=== PATIENT | female | born 1955 | race Caucasian/White ===

== ENCOUNTER 2018-07-17 10:15 | Inpatient (IN) | payer MEDICARE, OTHER ==
[~2018-07-17] VITALS: Ht 160 cm; Wt 78.0 kg
[~2018-07-17 10:15] MED LIST: ATOR20TA38 PO
[2018-07-17] MEDS ORDERED: NITROGLYCERIN 2% 1 GM OINT PKT TD STA (11:23)
[2018-07-17] MEDS ORDERED: ASPIRIN 325 MG TAB PO STA (11:23)
--- NOTE | 2018-07-17 11:26 | ERD ---
ER Documentation Chief Complaint Chief Complaint CP,SOB ONSET YESTERDAY HPI This is a 62-year-old female sent by her primary care physician for admission to the hospital for exertional angina with EKG changes. The patient says that last Monday she was getting exertional angina that was resolving with rest she is also short of breath with exertion is also resolving with rest. The symptoms are getting worse over the past week. She saw her primary care in the office today was sent here for admission and evaluation by cardiology. Currently she has no chest pain at rest. She has a history of prediabetes, hypertension, high cholesterol ROS All systems reviewed and are negative except as per history of present illness. Medications Home Meds Reported Medications Simvastatin* (Zocor*) 20 Mg Tablet, 20 MG PO QHS, #30 TAB 07/17/18 Aspirin* (Aspirin* EC) 81 Mg Tablet.dr, 81 MG PO DAILY, TAB 07/17/18 Metoprolol Succinate* (Toprol XL*) 50 Mg Tab.er.24h, 50 MG PO DAILY, #30 TAB 07/17/18 Discontinued Reported Medications Atorvastatin Calcium* (Atorvastatin Calcium*) 20 Mg Tablet, 20 MG PO 05/01/13 Allergies Allergies: Coded Allergies: No Known Allergy (Unverified , 07/17/18) PMhx/Soc History of Surgery: Yes (RIGHT BREAST SURGERY CANCER ) Anesthesia Reaction: No Hx 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 Disorder: No Hx Respiratory Disorders: Yes (ASTHMA ) Hx Cardiac Disorders: Yes (MURMER SINCE CHILDHOOD PALPITATIONS FREQUENTLY ; HIGH CHOLES;MICRO STENOSIS) Hx Psychiatric Problems: No Hx Miscellaneous Medical Probl: Yes (LYMPHODEMA ) Hx Alcohol Use: No Hx Substance Use: No Hx Tobacco Use: No Smoking Status: Never smoker FmHx Family History: No coronary disease Physical Exam Vitals Vital Signs Date Temp Pulse Resp B/P (MAP) Pulse Ox O2 O2 Flow FiO2 Time Delivery Rate 07/17/18 77 20 128/73 95 Room Air 11:15 (91) 07/17/18 98.1 74 18 134/63 99 10:32 (86) Physical Exam Const: [Well-developed, well-nourished] Head: [Atraumatic, normocephalic] Eyes: [Normal Conjunctiva, PERRLA, EOMI, normal sclera, no nystagmus] ENT: [Normal External Ears, Nose and Mouth, moist mucus membranes.] Neck: [Full range of motion. No meningismus, no lymphadenopathy.] Resp: [Clear to auscultation bilaterally, no wheezing, rhonchi, rales] Cardio: [Regular rate and rhythm, no murmurs, S1 S2 present] Abd: [Soft, non tender x 4, non distended. Normal bowel sounds, no guarding or rebound, no pulsitile abdominal masses or bruits] Skin: [No petechiae or rashes, no ecchymosis , no maculopapular rash] Back: [No midline or flank tenderness] Ext: [No cyanosis, or edema, FROM x 4, normal inspection, neurovascularly intact x 4] Neur: [Awake and alert, STR 5/5 x 4, sensation intact x 4, no focal findings, cerebellum intact] Psych: [Normal Mood and Affect] Results 24 hrs Current Medications Medications Dose Sig/Jose Start Time Status Last (Trade) Ordered Route PRN Stop Time Admin Dose Reason Admin Aspirin 325 mg ONCE STAT 07/17/18 DC 07/17/18 (Aspirin) PO 11:23 07/17/18 11:52 11:25 1 inch ONCE STAT 07/17/18 DC 07/17/18 Nitroglycerin TD 11:23 07/17/18 11:52 11:25 (Nitroglyceri n 2% Oint) Procedures/MDM EKG: Rate/Rhythm: Normal sinus rhythm with nonspecific T wave changes QRS, ST, QT: NORMAL MO, QRS, QT] Impression: Abnormal EKG Spoke with the primary care physician who will have admit under his care and he said he also has already consulted a senior relationship manager for evaluation Cardiac Admit MDM: Patient's symptoms are concerning for cardiac cause will require inpatient workup and continuous monitoring. Further w/u for ischemia, arrhythmia, PE or dissection will be deferred to the inpatient team. Departure Diagnosis: Primary Impression: Chest pain Chest pain type: unspecified Qualified Codes: R07.9 - Chest pain, unspecified Condition: Stable ANOOP IBRAHIM DO Jul 17, 2018 11:26
[2018-07-17] MEDS ORDERED: METO-319 PO (11:51)
[2018-07-17] MEDS ORDERED: ASPI-817 PO (11:52)
[2018-07-17] MEDS ORDERED: SIMV20TA PO (11:53)
[2018-07-17] MEDS ORDERED: ACETAMINOPHEN 325 MG TAB PO PRN ×2 (12:30→19:30)
[2018-07-17] MEDS ORDERED: ONDANSETRON 4 MG INJ IV PRN ×2 (12:30→20:00)
[2018-07-17] MEDS ORDERED: AZITHROMYCIN 500MG/NS (PMX) 250 ML IV STA (14:11)
[2018-07-17] MEDS ORDERED: IOHEXOL 100 ML ONE (14:27)
[2018-07-17] MEDS ORDERED: SOD CHLORIDE 0.9% 100 ML ONE (14:27)
[2018-07-17] MEDS: CEFTRIAXONE 1 GM/50 ML (PMX) 50 ML IVPB STA ×2 (14:47→14:53)
--- NOTE | 2018-07-17 17:14 | RADRPT ---
Echocardiogram Report Patient Name: RASTA PATRICKPatient ID: [id number] : 1955 (62y 9m)Study Date: 07/17/2018 3:50:55 PM Gender: FAccession #: [id number] Tech: Bert Enrique [facility] Location: [facility] Ref.Physician: COURTNEY NASSAR Height(Cm): BSA: Weight(Kg): BMI: Quality: Technically Difficult Study Account #: Procedures: Echocardiographic Report: Transthoracic echocardiogram with complete 2D, M-Mode, and doppler examination. Indications: Chest Pain. Measurements: 2D/M Mode Doppler Measurement Value Normal Range Measurement Value Normal Range LVIDd 2D 4.8 [ 3.8 - 5.2 ] cm AV Peak Gamal 1.2 [ 100.0 - 170.0 ] cm/s ec LVIDs 2D 3.5 [ 2.2 - 3.5 ] cm AV Peak PG 6.0 [ 2.0 - 9.0 ] mmHg LVPWd 2D 1.0 [ 0.6 - 0.9 ] cm LVOT Peak Gamal 0.7 [ 70.0 - 110.0 ] cm/se c IVSd 2D 1.0 [ 0.6 - 0.9 ] cm LVOT Peak PG 2.0 [ 2.0 - 6.0 ] mmHg AoR Diam 2D 2.4 [ 2.3 - 3.1 ] cm MV E Peak Gamal 1.2 [ 60.0 - 130.0 ] cm/se c EDV 2D 109.0 [ 46.0 - 106.0 ] ml MV A Peak Gamal 0.9 [ 100.0 - 120.0 ] cm/s ec ESV 2D 50.5 [ 14.0 - 42.0 ] ml MV E/A 1.3 [ 0.8 - 1.5 ] ratio EF 2D 53.7 [ 54.0 - 74.0 ] percent MV PHT 81.0 [ 20.0 - 100.0 ] msec LA Dimen 2D 4.1 [ 2.7 - 3.8 ] cm MV Peak Gamal 1.7 [ 60.0 - 130.0 ] cm/se c MV Peak PG 11.0 [ 1.0 - 10.0 ] mmHg MV Mean Gamal 1.2 cm/sec MV Mean PG 6.0 mmHg MV Decel Time 229 [ 104 - 258 ] msec MV Decel [place] 6 Lat E` Gamal 0.1 [ 10.0 - 15.0 ] cm/sec Lateral E/E` 18.8 [ 1.0 - 2.0 ] ratio MV E/A 1.3 [ 0.8 - 1.5 ] ratio MV PHT Peak Gamal 1.7 cm/sec MV VTI 47.1 cm MVA PHT 2.7 [ 2.0 - 4.0 ] cm2 TR Peak Gamal 3.2 [ 100.0 - 280.0 ] cm/s ec TR Peak PG 40.0 mmHg RVSP 48.0 [ 10.0 - 36.0 ] mmHg Findings: Left Ventricle: Normal left ventricular systolic function. Normal left ventricular cavity size. Normal left ventricular wall thickness. Ejection fraction is visually estimated at 55 %. Tissue Doppler/Mitral Doppler indices are indeterminate in this study due to the presence of mitral stenosis. Right Ventricle: Normal right ventricular size. Normal right ventricular systolic function. Left Atrium: There is mild enlargement of left atrium. Right Atrium: There is mild enlargement of right atrium. Mitral Valve: Mitral valve leaflets appear mildly thickened. Mild mitral annular calcification. Mild to moderate mitral stenosis. Mitral valve Max Velocity 1.69 m/sec. MaxPG 11.00 mmHg. MeanPG 6.00 mmHg. Mitral Valve Area by PHT 2.72 cm2. Thickened mitral valve leaflets with limited excursion typical appearance consistent with Rheumatic Mitral valve. Aortic Valve: No hemodynamically significant aortic stenosis by doppler. Aortic cusps appear mildly calcified. Tricuspid Valve: Normal appearance of the tricuspid valve. Right ventricular systolic pressure is consistent with moderate pulmonary hypertension. Estimated peak PA systolic pressure 48 mmHg. There is moderate tricuspid regurgitation. Pulmonic Valve: Normal pulmonic valve appearance. There is mild pulmonic regurgitation. Pericardium: Normal pericardium with no significant pericardial effusion. Aorta: Normal aortic root. IVC: Dilated IVC with respiratory collapse consistent with elevated right atrial pressure. Conclusions: Technically Difficult Study. Normal left ventricular systolic function. Normal left ventricular cavity size. Normal left ventricular wall thickness. Ejection fraction is visually estimated at 55 %. Tissue Doppler/Mitral Doppler indices are indeterminate in this study due to the presence of mitral stenosis. Normal right ventricular size. Normal right ventricular systolic function. There is mild enlargement of left atrium. Mitral valve leaflets appear mildly thickened. Mild mitral annular calcification. Mild to moderate mitral stenosis. Mitral valve Max Velocity 1.69 m/sec. MaxPG 11.00 mmHg. MeanPG 6.00 mmHg. Mitral Valve Area by PHT 2.72 cm2. Thickened mitral valve leaflets with limited excursion typical appearance consistent with Rheumatic Mitral valve. Normal appearance of the tricuspid valve. Right ventricular systolic pressure is consistent with moderate pulmonary hypertension. Estimated peak PA systolic pressure 48 mmHg. There is moderate tricuspid regurgitation. Normal pericardium with no significant pericardial effusion. Dilated IVC with respiratory collapse consistent with elevated right atrial pressure. No Vegetation, masses, or thrombi seen. Electronically Signed By: Lamin Herman 2018-07-17 17:13:21 PDT
--- NOTE | 2018-07-17 17:28 | CONS ---
Assessment/Plan Assessment/Plan Hospital Course (Demo Recall) 1. Chest pain shortness of breath 2. Pleural effusions right greater than left. Possible pneumonia on CT scan/chest x-ray 3. Stable mild to moderate mitral stenosis 4. Moderate pulmonary hypertension due to #3 5. History of SVT currently in sinus rhythm Recommendations: cont serial troponin EKG to rule for ACS though less likely given chronicity and duration of symptoms without evidence of any troponin elevation at the current time. Also with evidence of possible pneumonia on CT and chest x-ray however patient with normal white count no fevers question atypical. Can consider right thoracentesis for diagnostic/therapeutic purpose. Patient is already obtained an echo which showed stability stable cardiac disease no acute wall motion abnormality or LV dysfunction. Would hold off on further cardiac testing unless changes in cardiac enzyme until pulmonary process resolves. Consultation Date/Type/Reason Admit Date/Time 07/17/18 Date of Consultation: Jul 17, 2018 Type of Consult Cardiology Reason for Consultation SOB Requesting Provider: COURTNEY NASSAR MD Date/Time of Note DATE: 07/17/18 TIME: 17:17 Hx of Present Illness Patient is a 62-year-old woman with a past medical history of mild to moderate mitral stenosis, SVT who sees Dr. ba is outpatient. Patient states she was in good state of health until last Monday when she developed slow progression of dyspnea on exertion with chest pressure. Patient states initially intermittent though lasting longer with each day. Yesterday she noticed even shortness of breath and chest pressure with basic activity which would last for hours even with rest. States even with lying down she would feel better but any movement would cause shortness of breath. No PND orthopnea. No edema. Denies any fevers chills cough. Denies any other recent illness. States previous able to walk no chest pain shortness of breath. Patient seen by PCP in office today found to have abnormal EKG with normal sinus rhythm and T wave flattening of ST depression in inferior leads which was new compared to previous EKG and sent to [facility] ER for further evaluation. Fi rst troponin negative. Patient denies any current chest pain shortness of breath. At rest Constitutional: no complaints Eyes: no complaints ENT: no complaints Respiratory: shortness of breath; No cough Cardiovascular: chest pain Gastrointestinal: no complaints Genitourinary: no complaints Musculoskeletal: no complaints Skin: no complaints Neurologic: no complaints Endocrine: no complaints Immunologic: no complaints Past Medical History Past medical history: Hyperlipidemia, SVT, mitral stenosis, breast cancer status post bilateral mastectomy, reconstruction as well as chemotherapy., type 2 diabetes Past surgical history: Bilateral mastectomy, VINAY/BSO. Home Meds Reported Medications Simvastatin* (Zocor*) 20 Mg Tablet, 20 MG PO QHS, #30 TAB 07/17/18 Aspirin* (Aspirin* EC) 81 Mg Tablet.dr, 81 MG PO DAILY, TAB 07/17/18 Metoprolol Succinate* (Toprol XL*) 50 Mg Tab.er.24h, 50 MG PO DAILY, #30 TAB 07/17/18 Discontinued Reported Medications Atorvastatin Calcium* (Atorvastatin Calcium*) 20 Mg Tablet, 20 MG PO 05/01/13 Medications Current Medications Ondansetron HCl (Zofran Inj) 4 mg ER BRIDGE PRN IV NAUSEA/VOMITING; Start 07/17/18 at 12:30; Stop 07/18/18 at 12:29 Acetaminophen (Tylenol Tab) 650 mg ER BRIDGE PRN PO .MILD PAIN 1-3 OR TEMP; Start 07/17/18 at 12:30; Stop 07/18/18 at 12:29 Allergies: Coded Allergies: No Known Allergy (Unverified , 07/17/18) Family History Significant Family History: other (No significant family history of heart disease) Social History Smoking Status: Never smoker Other Social History Denies any alcohol drug or smoking. Exam/Review of Systems Exam Vitals Vital Signs Date Temp Pulse Resp B/P (MAP) Pulse Ox O2 O2 Flow FiO2 Time Delivery Rate 07/17/18 74 20 103/72 98 Room Air 15:00 (82) 07/17/18 98.1 10:32 Constitutional: alert, oriented Psych: no complaints, nl mood/affect Head: normocephalic Eyes: nl conjunctiva, EOMI ENMT: nl external ears & nose, nl lips & teeth, nl nasal mucosa & septum Neck: supple, non-tender; No jvd Respiratory: diminished breath sounds (R base), other Cardiovascular: regular rate and rhythm, nl pulses, diastolic murmur; No edema, No irregular rhythm, No jugular venous distention (JVD), No S3, No S4 Gastrointestinal: soft, non-tender Musculoskeletal: nl extremities to inspection, nl gait and stance Extremities: normal pulses 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: 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 II-XII intact, nl mental status, nl speech, nl strength Results Result Diagram: 07/17/18 1243 07/17/18 1243 Results 24hrs Laboratory Tests Test 07/17/18 12:43 White Blood Count 8.7 Red Blood Count 4.62 Hemoglobin 14.1 Hematocrit 42.1 Mean Corpuscular Volume 91.1 Mean Corpuscular Hemoglobin 30.5 Mean Corpuscular Hemoglobin Concent 33.5 Red Cell Distribution Width 12.5 Platelet Count 242 Mean Platelet Volume 10.0 Immature Granulocytes % 0.700 H Neutrophils % 66.1 Lymphocytes % 24.2 Monocytes % 6.8 Eosinophils % 1.6 Basophils % 0.6 Nucleated Red Blood Cells % 0.0 Immature Granulocytes # 0.060 H Neutrophils # 5.7 Lymphocytes # 2.1 Monocytes # 0.6 Eosinophils # 0.1 Basophils # 0.1 Nucleated Red Blood Cells # 0.0 Sodium Level 140 Potassium Level 3.9 Chloride Level 99 Carbon Dioxide Level 28 Anion Gap 13 Blood Urea Nitrogen 19 Creatinine 0.68 Est Glomerular Filtrat Rate mL/min > 60 Glucose Level 103 Calcium Level 9.7 Total Bilirubin 1.0 Direct Bilirubin 0.00 Indirect Bilirubin 1.0 Aspartate Amino Transf (AST/SGOT) 63 H Alanine Aminotransferase (ALT/SGPT) 101 H Alkaline Phosphatase 102 Troponin I < 0.012 Total Protein 7.5 Albumin 4.3 Globulin 3.20 Albumin/Globulin Ratio 1.34 Imaging Imaging Chest x-ray and CT angiogram results reviewed in EMR Medications Medication Current Medications Ondansetron HCl (Zofran Inj) 4 mg ER BRIDGE PRN IV NAUSEA/VOMITING; Start 07/17/18 at 12:30; Stop 07/18/18 at 12:29 Acetaminophen (Tylenol Tab) 650 mg ER BRIDGE PRN PO .MILD PAIN 1-3 OR TEMP; Start 07/17/18 at 12:30; Stop 07/18/18 at 12:29 OTIS BHATIA Jul 17, 2018 17:27
--- NOTE | 2018-07-17 19:16 | PREOPHP ---
DATE OF ADMISSION: 07/17/2018 REASON FOR ADMISSION: Shortness of breath and chest pressure on exertion. HISTORY OF PRESENT ILLNESS: This 62-year-old female came into my office today because of 1 week of progressive increase in shortness of breath and chest pressure on exertion. The patient denies cough, fever, chills. Her EKG that was done in my office today did show flattening of T-waves in several leads which was different than her previous EKG done a year ago. She has a history of bilateral breast cancer which has been in remission. She does have a history of mitral stenosis and a history of previous supraventricular tachycardia for which she is on metoprolol. PAST MEDICAL HISTORY: Remarkable for age-related osteoporosis, asthma, supraventricular tachycardia, gastroesophageal reflux disease, hyperlipidemia, malignant neoplasm of both breasts, mitral stenosis, BRCA gene positive, rheumatic mitral stenosis, type 2 diabetes mellitus without complication, vitamin D deficiency. PAST SURGICAL HISTORY: Left breast cancer status post lumpectomy, history of partial mastectomy of the left breast after a lumpectomy, history of right mastectomy, status post chemotherapy, status post radiation to the breasts, status post hysterectomy with BSO although still has cervix. SOCIAL HISTORY: She is . Never smoked. Does not drink alcohol. REVIEW OF SYSTEMS: GASTROINTESTINAL: Negative. GENITOURINARY: Negative. MUSCULOSKELETAL: Negative. NEUROLOGIC: Negative. PHYSICAL EXAMINATION: GENERAL: At this time reveals a well-developed female in no apparent distress. VITAL SIGNS: Blood pressure 120/90, pulse is 79, temperature 97.8, O2 saturation 95% on room air. HEENT: Head is normocephalic. Eyes: Extraocular muscles are intact. Nose and mouth are normal. NECK: Supple. No neck vein distention. LUNGS: Showed some mid lung rales in the left lung. The right lung was clear. HEART: Regular rhythm. No murmurs, gallops or rubs. ABDOMEN: Soft, nontender, no masses or megaly. EXTREMITIES: No peripheral edema. No calf tenderness. NEUROLOGIC: Grossly intact. IMPRESSION: 1. Exertional chest pressure for 1 week with EKG changes. Must rule out cardiac ischemia. We will order troponins, EKG, echocardiogram, cardiology consultation. She does not have a cough or fever and her white count is normal. Could be pneumonia, the chest x-ray and CAT scan shows some right lung possible pneumonia. She also has a moderate sized right pleural effusion. This may need a thoracentesis. 2. History of bilateral breast cancer and BRCA gene positive. She does have a right pleural effusion on CAT scan, which is moderate in size and may require a thoracentesis. 3. History of rheumatic mitral valve stenosis. 4. History of asthma. 5. Sleep apnea. 6. Elevated blood sugars in the past. PLAN: 1. Admit to telemetry. 2. Cardiology consultation was called with Dr. Herman, echocardiogram, serial troponins, EKG in a.m., 3. Pulmonary consultation to be called. 4. Start azithromycin and ceftriaxone in view of possible pneumonia. Dictated By: COURTNEY NASSAR MD, ND/RYAN Conf#: [id number] DID#: [id number] CC: ANOOP IBRAHIM DO;*EndCC* MTDD
[2018-07-17] MEDS ORDERED: NACL 0.9% 3 ML SYG IV SCH (19:30)
[2018-07-17] MEDS ORDERED: MAGNESIUM HYDROXIDE 30ML CUP PO PRN (19:30)
[2018-07-17] MEDS ORDERED: ZOLPIDEM 5 MG TAB PO PRN (19:30)
[2018-07-18] VITALS (19 sets, daily range): BP systolic 118–175; BP diastolic 60–94; PULSE 63–147; RESP 16–20; Ht 160 cm; Wt 78.0 kg
[2018-07-18] MEDS ORDERED: METOPROLOL 5 MG INJ IV ONE (06:00)
[2018-07-18] MEDS ORDERED: METOPROLOL (XL) 50 MG TAB PO SCH ×2 (06:03→09:00)
[2018-07-18] MEDS ORDERED: FUROSEMIDE 20 MG INJ IV ONE (09:00)
--- NOTE | 2018-07-18 09:02 | PN ---
Date/Time of Note Date/Time of Note DATE: 07/18/18 TIME: 08:53 Assessment/Plan VTE [place]axis [place] [facility] [place]: 3 [place]CD [place] [facility] [place] Yes Pharmacological prophylaxis: NA/contraindicated Pharm contraindication: surgical contra Lines/Catheters IV Catheter Type (from [email or web address] Mid Line Urinary Cath still in place: No Assessment/Plan Hospital Course 1 . Atrial fib flutter with RVR , Jessie complains of feeling tired today. She went into a rapid heart rate with atrial fib/flutter this morning. She missed her dose of metoprolol last night. She got a dose of metoprolol this morning. She denies chest pain or shortness of breath. 2. She does have bilateral pleural effusions more on the right than the left. I have ordered a right thoracentesis for her today if possible. Would only do thoracentesis if he a more controlled heart rate. 3. History of bilateral breast cancer 4. Recent onset of exertional chest pressure and shortness of breath. 5. History of asthma 6. Pneumonia. She is on antibiotics for possible pneumonia. Result Diagram: 07/18/18 0503 07/18/18 0507 Results 24hrs Laboratory Tests Test 07/17/18 12:43 07/17/18 20:38 07/17/18 21:15 07/18/18 05:03 White Blood Count 8.7 7.1 Red Blood Count 4.62 4.33 Hemoglobin 14.1 13.0 Hematocrit 42.1 39.4 Mean Corpuscular Volume 91.1 91.0 Mean Corpuscular 30.5 30.0 Hemoglobin Mean Corpuscular 33.5 33.0 Hemoglobin Concent Red Cell Distribution 12.5 12.8 Width Platelet Count 242 213 Mean Platelet Volume 10.0 9.9 Immature Granulocytes % 0.700 H 0.300 Neutrophils % 66.1 64.2 Lymphocytes % 24.2 23.1 Monocytes % 6.8 7.6 Eosinophils % 1.6 4.4 Basophils % 0.6 0.4 Nucleated Red Blood 0.0 0.0 Cells % Immature Granulocytes # 0.060 H 0.020 Neutrophils # 5.7 4.6 Lymphocytes # 2.1 1.6 Monocytes # 0.6 0.5 Eosinophils # 0.1 0.3 Basophils # 0.1 0.0 Nucleated Red Blood 0.0 0.0 Cells # Sodium Level 140 Potassium Level 3.9 Chloride Level 99 Carbon Dioxide Level 28 Anion Gap 13 Blood Urea Nitrogen 19 Creatinine 0.68 Est Glomerular Filtrat > 60 Rate mL/min Glucose Level 103 Calcium Level 9.7 Total Bilirubin 1.0 Direct Bilirubin 0.00 Indirect Bilirubin 1.0 Aspartate Amino 63 H Transf (AST/SGOT) Alanine 101 H Aminotransferase (ALT/SG PT) Alkaline Phosphatase 102 Troponin I < 0.012 < 0.012 Total Protein 7.5 Albumin 4.3 Globulin 3.20 Albumin/Globulin Ratio 1.34 Urine Color YELLOW Urine Clarity CLEAR Urine pH 6.0 Urine Specific [place] 1.042 H Urine Ketones NEGATIVE Urine Nitrite NEGATIVE Urine Bilirubin NEGATIVE Urine Urobilinogen NEGATIVE Urine Leukocyte Esterase NEGATIVE Urine Hemoglobin NEGATIVE Urine Glucose NEGATIVE Urine Total Protein NEGATIVE Test 07/18/18 05:07 Sodium Level 143 Potassium Level 4.0 Chloride Level 104 Carbon Dioxide Level 30 Anion Gap 9 Blood Urea Nitrogen 16 Creatinine 0.59 Est Glomerular Filtrat > 60 Rate mL/min Glucose Level 107 Hemoglobin A1c 6.1 H Calcium Level 9.1 Total Bilirubin 0.6 Direct Bilirubin 0.00 Indirect Bilirubin 0.6 Aspartate Amino 41 Transf (AST/SGOT) Alanine 80 H Aminotransferase (ALT/SG PT) Alkaline Phosphatase 73 Troponin I < 0.012 Total Protein 6.1 # Albumin 3.5 Globulin 2.60 Albumin/Globulin Ratio 1.34 Thyroid Stimulating 2.440 Hormone (TSH) Subjective 24 Hr Interval Summary Free Text/Dictation She is feeling tired. Earlier this morning she went into a rapid atrial fib flutter rate. Her heart rate is around 140-150. She denies chest pain or shortness of breath. Respiratory: no complaints Cardiovascular: no complaints Gastrointestinal: no complaints Genitourinary: no complaints Neurologic: no complaints Exam/Review of Systems Exam Vitals Vital Signs Date Temp Pulse Resp B/P (MAP) Pulse Ox O2 O2 Flow FiO2 Time Delivery Rate 07/18/18 147 08:00 07/18/18 97.8 16 118/67 96 07:24 (84) 07/18/18 Room Air 00:03 Intake and Output 07/17/18 07/17/18 07/18/18 1515:00 23:00 07:00 IntakeIntake Total 500 ml BalanceBalance 500 ml Constitutional: alert, oriented, well developed Respiratory: crackles/rales, diminished breath sounds Cardiovascular: irregular rhythm Musculoskeletal: nl extremities to inspection Results Results 24hrs Laboratory Tests Test 07/17/18 12:43 07/17/18 20:38 07/17/18 21:15 07/18/18 05:03 White Blood Count 8.7 7.1 Red Blood Count 4.62 4.33 Hemoglobin 14.1 13.0 Hematocrit 42.1 39.4 Mean Corpuscular Volume 91.1 91.0 Mean Corpuscular 30.5 30.0 Hemoglobin Mean Corpuscular 33.5 33.0 Hemoglobin Concent Red Cell Distribution 12.5 12.8 Width Platelet Count 242 213 Mean Platelet Volume 10.0 9.9 Immature Granulocytes % 0.700 H 0.300 Neutrophils % 66.1 64.2 Lymphocytes % 24.2 23.1 Monocytes % 6.8 7.6 Eosinophils % 1.6 4.4 Basophils % 0.6 0.4 Nucleated Red Blood 0.0 0.0 Cells % Immature Granulocytes # 0.060 H 0.020 Neutrophils # 5.7 4.6 Lymphocytes # 2.1 1.6 Monocytes # 0.6 0.5 Eosinophils # 0.1 0.3 Basophils # 0.1 0.0 Nucleated Red Blood 0.0 0.0 Cells # Sodium Level 140 Potassium Level 3.9 Chloride Level 99 Carbon Dioxide Level 28 Anion Gap 13 Blood Urea Nitrogen 19 Creatinine 0.68 Est Glomerular Filtrat > 60 Rate mL/min Glucose Level 103 Calcium Level 9.7 Total Bilirubin 1.0 Direct Bilirubin 0.00 Indirect Bilirubin 1.0 Aspartate Amino 63 H Transf (AST/SGOT) Alanine 101 H Aminotransferase (ALT/SG PT) Alkaline Phosphatase 102 Troponin I < 0.012 < 0.012 Total Protein 7.5 Albumin 4.3 Globulin 3.20 Albumin/Globulin Ratio 1.34 Urine Color YELLOW Urine Clarity CLEAR Urine pH 6.0 Urine Specific [place] 1.042 H Urine Ketones NEGATIVE Urine Nitrite NEGATIVE Urine Bilirubin NEGATIVE Urine Urobilinogen NEGATIVE Urine Leukocyte Esterase NEGATIVE Urine Hemoglobin NEGATIVE Urine Glucose NEGATIVE Urine Total Protein NEGATIVE Test 07/18/18 05:07 Sodium Level 143 Potassium Level 4.0 Chloride Level 104 Carbon Dioxide Level 30 Anion Gap 9 Blood Urea Nitrogen 16 Creatinine 0.59 Est Glomerular Filtrat > 60 Rate mL/min Glucose Level 107 Hemoglobin A1c 6.1 H Calcium Level 9.1 Total Bilirubin 0.6 Direct Bilirubin 0.00 Indirect Bilirubin 0.6 Aspartate Amino 41 Transf (AST/SGOT) Alanine 80 H Aminotransferase (ALT/SG PT) Alkaline Phosphatase 73 Troponin I < 0.012 Total Protein 6.1 # Albumin 3.5 Globulin 2.60 Albumin/Globulin Ratio 1.34 Thyroid Stimulating 2.440 Hormone (TSH) Medications Medication Current Medications IV Flush (NS 3 ml) 3 ml PER PROTOCOL IV ; Start 07/17/18 at 19:30 Acetaminophen (Tylenol Tab) 650 mg Q6H PRN PO .PAIN 1-3 OR TEMP Last administered on 07/18/18at 00:29; Admin Dose 650 MG; Start 07/17/18 at 19:30 Zolpidem Tartrate (Ambien) 5 mg QHS PRN PO .INSOMNIA; Start 07/17/18 at 19:30 Magnesium Hydroxide (Milk Of Mag) 30 ml DAILY PRN PO .CONSTIPATION; Start 07/17/18 at 19:30 Aspirin (Halfprin) 81 mg DAILY PO ; Start 07/18/18 at 09:00 Azithromycin (Zithromax) 250 mg ONCE ONCE PO ; Start 07/18/18 at 20:00; Stop 07/18/18 at 20:01 Ceftriaxone Sodium 50 ml @ 100 mls/hr ONCE ONCE IVPB ; Start 07/18/18 at 20:00; Stop 07/18/18 at 20:29 Ondansetron HCl (Zofran Inj) 4 mg ER BRIDGE PRN IV NAUSEA/VOMITING; Start 07/17/18 at 20:00 Metoprolol Succinate (Toprol Xl) 50 mg DAILY PO Last administered on 07/18/18at 06:14; Admin Dose 50 MG; Start 07/18/18 at 06:03 Furosemide (Lasix) 20 mg ONCE ONCE IV ; Start 07/18/18 at 09:00; Stop 07/18/18 at 09:01; Status UNCOURTNEY ESCOBAR MD Jul 18, 2018 09:02
--- NOTE | 2018-07-18 09:59 | CONS ---
Assessment/Plan Assessment/Plan Hospital Course (Demo Recall) 1. Chest pain shortness of breath- ? related to pna vs.recurrent aflutter 2. Pleural effusions right greater than left. Possible pneumonia on CT scan/chest x-ray 3. Stable mild to moderate mitral stenosis 4. Moderate pulmonary hypertension due to #3 5. Atrial flutter 2:1 block- will need improved rate control and consider anticoag Recommendations: - inc metoprolol xl to 50mg po bid - add cardizem gtt - give mag 2g iv x 1 - consider anticoag if pt does not convert - once rate improved can obtain thoracentesis if adequate fluid Consultation Date/Type/Reason Admit Date/Time Jul 17, 2018 at 12:18 Initial Consult Date 07/17/18 Type of Consult Cardiology Requesting Provider: COURTNEY NASSAR MD Date/Time of Note DATE: 07/18/18 TIME: 09:55 24 HR Interval Summary Free Text/Dictation pt stable overnight, this am converted to aflutter with hrs 140-160s. states feels fatigue. no cp/sob. up to chair. mild dizziness, no falls. HD stable tele reviewed nsr -> aflutter 2:1 block Detailed Summary Eyes: no complaints ENT: no complaints Respiratory: shortness of breath Cardiovascular: no complaints Gastrointestinal: no complaints Genitourinary: no complaints Exam/Review of Systems Exam Vitals Vital Signs Date Temp Pulse Resp B/P (MAP) Pulse Ox O2 O2 Flow FiO2 Time Delivery Rate 07/18/18 147 08:00 07/18/18 97.8 16 118/67 96 07:24 (84) 07/18/18 Room Air 00:03 Intake and Output 07/17/18 07/17/18 07/18/18 1515:00 23:00 07:00 IntakeIntake Total 500 ml BalanceBalance 500 ml Constitutional: alert, oriented Psych: no complaints, nl mood/affect Head: normocephalic Eyes: nl conjunctiva, EOMI ENMT: nl external ears & nose, nl lips & teeth Neck: supple, non-tender; No jvd Respiratory: other (decreased bs R base ) Cardiovascular: nl pulses, diastolic murmur, other (tachy regular); No edema, No S3, No S4 Gastrointestinal: non-tender Musculoskeletal: nl extremities to inspection, nl gait and stance Extremities: normal pulses 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: 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, nl mental status, nl speech, nl strength Results Result Diagram: 07/18/18 0503 07/18/18 0507 Results 24hrs Laboratory Tests Test 07/17/18 12:43 07/17/18 20:38 07/17/18 21:15 07/18/18 05:03 White Blood Count 8.7 7.1 Red Blood Count 4.62 4.33 Hemoglobin 14.1 13.0 Hematocrit 42.1 39.4 Mean Corpuscular Volume 91.1 91.0 Mean Corpuscular 30.5 30.0 Hemoglobin Mean Corpuscular 33.5 33.0 Hemoglobin Concent Red Cell Distribution 12.5 12.8 Width Platelet Count 242 213 Mean Platelet Volume 10.0 9.9 Immature Granulocytes % 0.700 H 0.300 Neutrophils % 66.1 64.2 Lymphocytes % 24.2 23.1 Monocytes % 6.8 7.6 Eosinophils % 1.6 4.4 Basophils % 0.6 0.4 Nucleated Red Blood 0.0 0.0 Cells % Immature Granulocytes # 0.060 H 0.020 Neutrophils # 5.7 4.6 Lymphocytes # 2.1 1.6 Monocytes # 0.6 0.5 Eosinophils # 0.1 0.3 Basophils # 0.1 0.0 Nucleated Red Blood 0.0 0.0 Cells # Sodium Level 140 Potassium Level 3.9 Chloride Level 99 Carbon Dioxide Level 28 Anion Gap 13 Blood Urea Nitrogen 19 Creatinine 0.68 Est Glomerular Filtrat > 60 Rate mL/min Glucose Level 103 Calcium Level 9.7 Total Bilirubin 1.0 Direct Bilirubin 0.00 Indirect Bilirubin 1.0 Aspartate Amino 63 H Transf (AST/SGOT) Alanine 101 H Aminotransferase (ALT/SG PT) Alkaline Phosphatase 102 Troponin I < 0.012 < 0.012 Total Protein 7.5 Albumin 4.3 Globulin 3.20 Albumin/Globulin Ratio 1.34 Urine Color YELLOW Urine Clarity CLEAR Urine pH 6.0 Urine Specific [place] 1.042 H Urine Ketones NEGATIVE Urine Nitrite NEGATIVE Urine Bilirubin NEGATIVE Urine Urobilinogen NEGATIVE Urine Leukocyte Esterase NEGATIVE Urine Hemoglobin NEGATIVE Urine Glucose NEGATIVE Urine Total Protein NEGATIVE Test 07/18/18 05:07 Sodium Level 143 Potassium Level 4.0 Chloride Level 104 Carbon Dioxide Level 30 Anion Gap 9 Blood Urea Nitrogen 16 Creatinine 0.59 Est Glomerular Filtrat > 60 Rate mL/min Glucose Level 107 Hemoglobin A1c 6.1 H Calcium Level 9.1 Total Bilirubin 0.6 Direct Bilirubin 0.00 Indirect Bilirubin 0.6 Aspartate Amino 41 Transf (AST/SGOT) Alanine 80 H Aminotransferase (ALT/SG PT) Alkaline Phosphatase 73 Troponin I < 0.012 Total Protein 6.1 # Albumin 3.5 Globulin 2.60 Albumin/Globulin Ratio 1.34 Thyroid Stimulating 2.440 Hormone (TSH) Imaging Imaging EKG reviewed images: aflutte r2:1 blcok, Medications Medication Current Medications IV Flush (NS 3 ml) 3 ml PER PROTOCOL IV ; Start 07/17/18 at 19:30 Acetaminophen (Tylenol Tab) 650 mg Q6H PRN PO .PAIN 1-3 OR TEMP Last administered on 07/18/18at 00:29; Admin Dose 650 MG; Start 07/17/18 at 19:30 Zolpidem Tartrate (Ambien) 5 mg QHS PRN PO .INSOMNIA; Start 07/17/18 at 19:30 Magnesium Hydroxide (Milk Of Mag) 30 ml DAILY PRN PO .CONSTIPATION; Start 07/17/18 at 19:30 Aspirin (Halfprin) 81 mg DAILY PO ; Start 07/18/18 at 09:00 Azithromycin (Zithromax) 250 mg ONCE ONCE PO ; Start 07/18/18 at 20:00; Stop 07/18/18 at 20:01 Ceftriaxone Sodium 50 ml @ 100 mls/hr ONCE ONCE IVPB ; Start 07/18/18 at 20:00; Stop 07/18/18 at 20:29 Ondansetron HCl (Zofran Inj) 4 mg ER BRIDGE PRN IV NAUSEA/VOMITING; Start 07/17/18 at 20:00 Metoprolol Succinate (Toprol Xl) 50 mg DAILY PO Last administered on 07/18/18at 06:14; Admin Dose 50 MG; Start 07/18/18 at 06:03 OTIS BHATIA Jul 18, 2018 09:59
[2018-07-18] MEDS ORDERED: DILTIAZEM 25 MG INJ IV ONE (10:00)
[2018-07-18] MEDS ORDERED: DILTIAZEM-D5W 125MG/125ML DRIP 125 ML IV SCH (10:00)
--- NOTE | 2018-07-18 10:08 | RADRPT ---
Vent Rate: 140 bpm RR Interval: 0 msec WV Interval: 152 msec QRS Duration: 74 msec QT Interval: 346 msec QTC Interval: 528 msec P-R-T Warnock: 0 - 68 - 0 degrees Atrial Flutter with 2:[address] abnormality, possible inferior subendocardial injury Abnormal ECG Electronically Signed By: Lamin Herman
[2018-07-18] MEDS: ASPIRIN (EC) 81 MG TAB PO SCH (10:23)
[2018-07-18] MEDS ORDERED: MAGNESIUM SULFATE 2 GM/50 ML 50 ML IVPB ONE (11:00)
[2018-07-18] MEDS ORDERED: LIDOCAINE 1% (MPF) 5 ML VIAL ONE (14:10)
--- NOTE | 2018-07-18 17:14 | CONS ---
DATE OF ADMISSION: 07/18/2018 DATE OF CONSULTATION: TYPE OF CONSULTATION: Pulmonary. REASON FOR CONSULTATION: Shortness of breath. Thank you, Dr. Nassar, for this consultation. HISTORY OF PRESENT ILLNESS: This is a pleasant 62-year-old lady with 1-week history of increasing sh ortness of breath, orthopnea, PND, but no fever, no chills, no chest pain or palpitations. She has a remote history of breast cancer status post resection of both breasts and radiation chemotherapy per formed independently. She, in addition, has a history of mitral valve stenosis and supraventricular tachycardia. Denies any weight loss. No travel history. No hemoptysis or hematemesis. Chest CT wa s performed and demonstrated right greater than left pleural effusion. PAST MEDICAL HISTORY: As above including history of breast cancer with right implant, osteoporosis, gastroesophageal reflux disease, vitamin D deficiency, type 2 diabetes, rheumatic mitral stenosis. PAST SURGICAL HISTORY: Includes left breast cancer status post lumpectomy and partial mastectomy, ri ght mastectomy post-chemotherapy and radiation, history of hysterectomy. SOCIAL HISTORY: She is a nonsmoker. No alcohol, no history of illicit drug use. , independe nt in ADLs. SYSTEMS REVIEW: A 12-point review of systems was negative, other than that the mentioned above. PHYSICAL EXAMINATION: GENERAL: Well-nourished, well-developed lady, comfortable at rest, talking in full and complete sent ences. VITAL SIGNS: Currently afebrile, pulse is 70, blood pressure 150/88, O2 saturation 98% on room air. NECK: Supple. No JVD or lymphadenopathy. CARDIAC: S1, S2. No added sounds or murmur. CHEST: Diminished air entry bilaterally. ABDOMEN: Soft, nontender. No guarding or rebound. EXTREMITIES: No cyanosis, clubbing, 1+ edema. NEUROLOGIC: Grossly intact. No focal deficits. LABORATORY DATA: White count 7.1, hemoglobin 13, platelets 213. Chemistry within normal limits. DIAGNOSTIC DATA: Echocardiogram demonstrated preserved ejection fraction with mild mitral stenosis a nd pulmonary hypertension in addition to moderate tricuspid regurgitation. IMPRESSION AND PLAN: Pleural effusions, possibly secondary to underlying cardiac disease, although c oncern for metastatic breast cancer given her history. I agree with thoracentesis with pleural fluid including pleural fluid studies including cytology. The patient may benefit from outpatient PET-CT scan in addition to rate control and gentle diuresis at present. Thank you again, Dr. Nassar, for this consultation. Dictated By: MALLY HARRIS MD SV/NTS Conf#: [id number] DID#: [id number] CC: COURTNEY NASSAR MD;*EndCC*
[2018-07-18] MEDS ORDERED: AZITHROMYCIN 250 MG TAB PO ONE (20:00)
[2018-07-18] MEDS ORDERED: CEFTRIAXONE 1 GM/50 ML (PMX) 50 ML IVPB ONE (20:00)
[2018-07-18] MEDS: METOPROLOL (XL) 50 MG TAB PO SCH (20:44)
[2018-07-19] VITALS (11 sets, daily range): BP systolic 119–137; BP diastolic 56–64; PULSE 63–76; RESP 18–19
[2018-07-19] MEDS: ASPIRIN (EC) 81 MG TAB PO SCH (08:39)
[2018-07-19] MEDS: METOPROLOL (XL) 50 MG TAB PO SCH ×2 (08:40→20:00)
--- NOTE | 2018-07-19 09:57 | PN ---
Date/Time of Note Date/Time of Note DATE: 07/19/18 TIME: 09:52 Assessment/Plan VTE Prophylaxis Risk score (from [facility] [place]0 risk: 4 SCD applied (from [facility] [place]): Yes Pharmacological prophylaxis: other Pharm contraindication: low risk/ambulating Lines/Catheters IV [facility]ter Type (from [facility] Mid Line Urinary Cath still in place: No Assessment/Plan Hospital Course 1 . She is now in sinus rhythm after having an episode of atrial fib flutter with RVR yesterday, Jessie complains of feeling tired . She went into a rapid heart rate with atrial fib/flutter yesterday and then spontaneously converted to sinus rhythm. She missed her dose of metoprolol 2 nights ago . She denies chest pain or shortness of breath. 2. She has bilateral pleural effusions more on the right than the left. She had a right thoracentesis yesterday with 675 cc of bloody fluid removed. Cytology is pending. 3. History of bilateral breast cancer 4. Recent onset of exertional chest pressure and shortness of breath. 5. History of asthma 6. Pneumonia. She is on antibiotics for possible pneumonia. I will repeat a chest x-ray today. Result Diagram: 07/18/18 0503 07/18/18 0507 Results 24hrs Laboratory Tests Test 07/18/18 10:29 07/18/18 14:00 Prothrombin Time 13.8 Prothrombin Time Ratio 1.1 INR International Normalized Ratio 1.05 Activated Partial Thromboplast Time 27.2 Troponin I < 0.012 Body Fluid Type PLEURAL FLUID Body Fluid Volume 675.0 Body Fluid Color YELLOW Body Fluid Appearance HAZY Body Fluid WBC 420 Body Fluid RBC (Auto) 6000 Body Fluid Polynuclear WBCs (%) 6.5 Body Fluid Mononuclear Cells % Auto 93.5 Body Fluid Glucose 137 Body Fluid Total Protein < 2.0 Body Fluid Lactate Dehydrogenase 189 Subjective 24 Hr Interval Summary Free Text/Dictation Jessie is feeling better today after having a right thoracentesis with 675 cc of bloody fluid removed yesterday. Constitutional: no complaints, improved Gastrointestinal: no complaints Genitourinary: no complaints Musculoskeletal: no complaints Neurologic: no complaints Exam/Review of Systems Exam Vitals Vital Signs Date Temp Pulse Resp B/P (MAP) Pulse Ox O2 O2 Flow FiO2 Time Delivery Rate 07/19/18 71 08:21 07/19/18 97.7 18 131/58 92 07:47 (82) 07/18/18 Room Air 14:06 Intake and Output 07/18/18 07/18/18 07/19/18 1515:00 23:00 07:00 IntakeIntake Total 1000 ml 300 ml OutputOutput Total 700 ml BalanceBalance 300 ml 300 ml Results Results 24hrs Laboratory Tests Test 07/18/18 10:29 07/18/18 14:00 Prothrombin Time 13.8 Prothrombin Time Ratio 1.1 INR International Normalized Ratio 1.05 Activated Partial Thromboplast Time 27.2 Troponin I < 0.012 Body Fluid Type PLEURAL FLUID Body Fluid Volume 675.0 Body Fluid Color YELLOW Body Fluid Appearance HAZY Body Fluid WBC 420 Body Fluid RBC (Auto) 6000 Body Fluid Polynuclear WBCs (%) 6.5 Body Fluid Mononuclear Cells % Auto 93.5 Body Fluid Glucose 137 Body Fluid Total Protein < 2.0 Body Fluid Lactate Dehydrogenase 189 Medications Medication Current Medications IV Flush (NS 3 ml) 3 ml PER PROTOCOL IV ; Start 07/17/18 at 19:30 Acetaminophen (Tylenol Tab) 650 mg Q6H PRN PO .PAIN 1-3 OR TEMP Last administered on 07/18/18at 00:29; Admin Dose 650 MG; Start 07/17/18 at 19:30 Zolpidem Tartrate (Ambien) 5 mg QHS PRN PO .INSOMNIA; Start 07/17/18 at 19:30 Magnesium Hydroxide (Milk Of Mag) 30 ml DAILY PRN PO .CONSTIPATION; Start 07/17/18 at 19:30 Aspirin (Halfprin) 81 mg DAILY PO Last administered on 07/19/18at 08:39; Admin Dose 81 MG; Start 07/18/18 at 09:00 Ondansetron HCl (Zofran Inj) 4 mg ER BRIDGE PRN IV NAUSEA/VOMITING; Start 07/17/18 at 20:00 Metoprolol Succinate (Toprol Xl) 50 mg BID PO Last administered on 07/19/18at 08:40; Admin Dose 50 MG; Start 07/18/18 at 21:00 COURTNEY NASSAR MD Jul 19, 2018 09:57
--- NOTE | 2018-07-19 09:58 | CONS ---
Assessment/Plan Assessment/Plan Hospital Course (Demo Recall) 1. Chest pain shortness of breath- ? related to pna vs.recurrent aflutter 2. Pleural effusions right greater than left. Possible pneumonia on CT scan/chest x-ray/ s/p thora- transudative 3. Stable mild to moderate mitral stenosis 4. Moderate pulmonary hypertension due to #3 5. Atrial flutter 2:1 block- converted spontaneously, watch for recurrence Recommendations: - metoprolol xl to 50mg po bid - would start asa 81mg daily at least - no sustained afib/flutter > 48hrs, ok to hold off anticoag. will need half-way monitor as outpt - watch for recurrent effusion, may need low dose diuretic will f/u as outpt after discharge Consultation Date/Type/Reason Admit Date/Time Jul 18, 2018 at 14:31 Initial Consult Date 07/17/18 Type of Consult Cardiology Requesting Provider: COURTNEY NASSAR MD Date/Time of Note DATE: 07/19/18 TIME: 09:55 24 HR Interval Summary Free Text/Dictation no recurrent atrial flutter. pt doing well. states had pain during R thoracentesis, but improved now. breathing improved, mild sob. no cp tele reviewed: NSR, no pauses, rare pacs Detailed Summary Eyes: no complaints ENT: no complaints Respiratory: shortness of breath Cardiovascular: no complaints Exam/Review of Systems Exam Vitals Vital Signs Date Temp Pulse Resp B/P (MAP) Pulse Ox O2 O2 Flow FiO2 Time Delivery Rate 07/19/18 71 08:21 07/19/18 97.7 18 131/58 92 07:47 (82) 07/18/18 Room Air 14:06 Intake and Output 07/18/18 07/18/18 07/19/18 1515:00 23:00 07:00 IntakeIntake Total 1000 ml 300 ml OutputOutput Total 700 ml BalanceBalance 300 ml 300 ml Exam Constitutional: alert, oriented Psych: no complaints, nl mood/affect Head: normocephalic Eyes: nl conjunctiva, EOMI ENMT: nl external ears & nose, nl lips & teeth Neck: supple, non-tender; No jvd Respiratory: aeration improved Cardiovascular: nl pulses, diastolic [id number] No edema, No S3, No S4 Gastrointestinal: non-tender Musculoskeletal: nl extremities to inspection, nl gait and stance Extremities: normal pulses 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: 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 II-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 intact, nl mental status, nl speech, nl strength Results Result Diagram: 07/18/18 0503 07/18/18 0507 Results 24hrs Laboratory Tests Test 07/18/18 10:29 07/18/18 14:00 Prothrombin Time 13.8 Prothrombin Time Ratio 1.1 INR International Normalized Ratio 1.05 Activated Partial Thromboplast Time 27.2 Troponin I < 0.012 Body Fluid Type PLEURAL FLUID Body Fluid Volume 675.0 Body Fluid Color YELLOW Body Fluid Appearance HAZY Body Fluid WBC 420 Body Fluid RBC (Auto) 6000 Body Fluid Polynuclear WBCs (%) 6.5 Body Fluid Mononuclear Cells % Auto 93.5 Body Fluid Glucose 137 Body Fluid Total Protein < 2.0 Body Fluid Lactate Dehydrogenase 189 Imaging Imaging thoracentesis/cxr reports reviewed Medications Medication Current Medications IV Flush (NS 3 ml) 3 ml PER PROTOCOL IV ; Start 07/17/18 at 19:30 Acetaminophen (Tylenol Tab) 650 mg Q6H PRN PO .PAIN 1-3 OR TEMP Last administered on 07/18/18at 00:29; Admin Dose 650 MG; Start 07/17/18 at 19:30 Zolpidem Tartrate (Ambien) 5 mg QHS PRN PO .INSOMNIA; Start 07/17/18 at 19:30 Magnesium Hydroxide (Milk Of Mag) 30 ml DAILY PRN PO .CONSTIPATION; Start 07/17/18 at 19:30 Aspirin (Halfprin) 81 mg DAILY PO Last administered on 07/19/18at 08:39; Admin Dose 81 MG; Start 07/18/18 at 09:00 Ondansetron HCl (Zofran Inj) 4 mg ER BRIDGE PRN IV NAUSEA/VOMITING; Start 07/17/18 at 20:00 Metoprolol Succinate (Toprol Xl) 50 mg BID PO Last administered on 07/19/18at 08:40; Admin Dose 50 MG; Start 07/18/18 at 21:00 Ceftriaxone Sodium 50 ml @ 100 mls/hr Q24H IVPB ; Start 07/19/18 at 10:00; Status UNV Azithromycin (Zithromax) 250 mg DAILY PO ; Start 07/19/18 at 10:00; Status UNV OTIS BHATIA Jul 19, 2018 09:58
--- NOTE | 2018-07-19 11:02 | CONS ---
Consult Date/Type/Reason Admit Date/Time Jul 18, 2018 at 14:31 Initial Consult Date 07/17/18 Type of Consult Pulmonary Requesting Provider: COURTNEY NASSAR MD Date/Time of Note DATE: 07/19/18 TIME: 11:01 Subjective Status post thoracentesis bloody effusion patient states she feels significantly better requesting to go home. Objective Vital Signs Date Temp Pulse Resp B/P (MAP) Pulse Ox O2 O2 Flow FiO2 Time Delivery Rate 07/19/18 71 08:21 07/19/18 97.7 18 131/58 92 07:47 (82) 07/18/18 Room Air 14:06 Intake and Output 07/18/18 07/18/18 07/19/18 1515:00 23:00 07:00 IntakeIntake Total 1000 ml 300 ml OutputOutput Total 700 ml BalanceBalance 300 ml 300 ml Exam PHYSICAL EXAMINATION: GENERAL: Well-nourished, well-developed lady, comfortable at rest, talking in full and complete sentences. VITAL SIGNS: NECK: Supple. No JVD or lymphadenopathy. CARDIAC: S1, S2. No added sounds or murmur. CHEST: Diminished air entry bilaterally. ABDOMEN: Soft, nontender. No guarding or rebound. EXTREMITIES: No cyanosis, clubbing, 1+ edema. NEUROLOGIC: Grossly intact. No focal deficits. Results/Medications Result Diagram: 07/18/18 0503 07/18/18 0507 Results 24 hrs Laboratory Tests Test 07/18/18 14:00 Body Fluid Type PLEURAL FLUID Body Fluid Volume 675.0 Body Fluid Color YELLOW Body Fluid Appearance HAZY Body Fluid WBC 420 Body Fluid RBC (Auto) 6000 Body Fluid Polynuclear WBCs (%) 6.5 Body Fluid Mononuclear Cells % Auto 93.5 Body Fluid Glucose 137 Body Fluid Total Protein < 2.0 Body Fluid Lactate Dehydrogenase 189 Medications Current Medications IV Flush (NS 3 ml) 3 ml PER PROTOCOL IV ; Start 07/17/18 at 19:30 Acetaminophen (Tylenol Tab) 650 mg Q6H PRN PO .PAIN 1-3 OR TEMP Last administ ered on 07/18/18at 00:29; Admin Dose 650 MG; Start 07/17/18 at 19:30 Zolpidem Tartrate (Ambien) 5 mg QHS PRN PO .INSOMNIA; Start 07/17/18 at 19:30 Magnesium Hydroxide (Milk Of Mag) 30 ml DAILY PRN PO .CONSTIPATION; Start 07/17/18 at 19:30 Aspirin (Halfprin) 81 mg DAILY PO Last administered on 07/19/18at 08:39; Admin Dose 81 MG; Start 07/18/18 at 09:00 Ondansetron HCl (Zofran Inj) 4 mg ER BRIDGE PRN IV NAUSEA/VOMITING; Start 07/17/18 at 20:00 Metoprolol Succinate (Toprol Xl) 50 mg BID PO Last administered on 07/19/18at 08:40; Admin Dose 50 MG; Start 07/18/18 at 21:00 Ceftriaxone Sodium 50 ml @ 100 mls/hr Q24H IVPB ; Start 07/19/18 at 10:00 Azithromycin (Zithromax) 250 mg DAILY PO ; Start 07/19/18 at 10:00 Assessment/Plan Hospital Course (Demo Recall) Assessment 1. Dyspnea secondary to pleural effusion status post thoracentesis. Concerning for possible recurrence of breast cancer. Given history of bilateral breast CA mastectomies chemotherapy and radiation treatment. Plan 1. Await pleural fluid cytology 2. Consider PET/CT if right upper lobe infiltrate is not resolved in several weeks. Follow-up with me in the office. MALLY HARRIS MD, [facility] Jul 19, 2018 11:02
[2018-07-19] MEDS: AZITHROMYCIN 250 MG TAB PO SCH (11:35)
[2018-07-19] MEDS: CEFTRIAXONE 1 GM/50 ML (PMX) 50 ML IVPB SCH (11:36)
[2018-07-19] MEDS ORDERED: ALBUTEROL/IPRATROPIUM (NEB) 3 ML AMP HHN PRN (23:00)
[2018-07-19] MEDS ORDERED: FUROSEMIDE 40 MG INJ IV ONE (23:00)
[2018-07-20 00:08] VITALS: PULSE 64
[2018-07-20 03:59] VITALS: BP 120/55; PULSE 72; RESP 21
[2018-07-20 04:16] VITALS: PULSE 74
[2018-07-20 07:21] VITALS: BP 124/67; PULSE 69; RESP 18
[2018-07-20 08:00] VITALS: PULSE 82
[2018-07-20] MEDS: ASPIRIN (EC) 81 MG TAB PO SCH (08:25)
[2018-07-20] MEDS: CEFTRIAXONE 1 GM/50 ML (PMX) 50 ML IVPB SCH (08:25)
[2018-07-20] MEDS: METOPROLOL (XL) 50 MG TAB PO SCH (08:26)
[2018-07-20] MEDS: AZITHROMYCIN 250 MG TAB PO SCH (08:26)
--- NOTE | 2018-07-20 08:39 | CONS ---
Assessment/Plan Assessment/Plan Hospital Course (Demo Recall) 1. Chest pain shortness of breath- ? related to pna vs.recurrent aflutter 2. Pleural effusions right greater than left. Possible pneumonia on CT scan/chest x-ray/ s/p thora- transudative 3. Stable mild to moderate mitral stenosis 4. Moderate pulmonary hypertension due to #3 5. Atrial flutter 2:1 block- converted spontaneously, watch for recurrence Recommendations: - metoprolol xl to 50mg po bid - would start asa 81mg daily at least - no sustained afib/flutter > 48hrs, ok to hold off anticoag. will need retirement monitor as outpt. - no recurrent effusion, hold off on diuretic will f/u as outpt after discharge Consultation Date/Type/Reason Admit Date/Time Jul 18, 2018 at 14:31 Initial Consult Date 07/17/18 Type of Consult Cardiology Requesting Provider: COURTNEY NASSAR MD Date/Time of Note DATE: 07/20/18 TIME: 08:31 24 HR Interval Summary Free Text/Dictation no acute events. pt states mild wheeze overnight, no sob. feels good this am no issues. ambulatory no cp/sob tele reviewed ns r Detailed Summary Eyes: no complaints ENT: no complaints Respiratory: no complaints Cardiovascular: no complaints Exam/Review of Systems Exam Vitals Vital Signs Date Temp Pulse Resp B/P (MAP) Pulse Ox O2 O2 Flow FiO2 Time Delivery Rate 07/20/18 98.2 69 18 124/67 97 07:21 (86) 07/19/18 21 23:06 07/18/18 Room Air 14:06 Intake and Output 07/19/18 07/19/18 07/20/18 1515:00 23:00 07:00 IntakeIntake Total 50 ml 700 ml 400 ml BalanceBalance 50 ml 700 ml 400 ml Exam Constitutional: alert, oriented Psych: no complaints, nl mood/affect Head: normocephalic Eyes: nl conjunctiva, EOMI ENMT: nl external ears & nose, nl lips & teeth Neck: supple, non-tender; No jvd Respiratory: aeration improved Cardiovascular: nl pulses, diastolic [id number] No edema, No S3, No S4 Gastrointestinal: non-tender Musculoskeletal: nl extremities to inspection, nl gait and stance Extremities: normal pulses 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: HEARING AID REPAIRER II-XII intact, nl mental status, nl speech, nl strength Results Result Diagram: 07/18/18 0503 07/18/18 0507 Imaging Imaging cxr report reviewed Medications Medication Current Medications IV Flush (NS 3 ml) 3 ml PER PROTOCOL IV ; Start 07/17/18 at 19:30 Acetaminophen (Tylenol Tab) 650 mg Q6H PRN PO .PAIN 1-3 OR TEMP Last administered on 07/18/18at 00:29; Admin Dose 650 MG; Start 07/17/18 at 19:30 Zolpidem Tartrate (Ambien) 5 mg QHS PRN PO .INSOMNIA; Start 07/17/18 at 19:30 Magnesium Hydroxide (Milk Of Mag) 30 ml DAILY PRN PO .CONSTIPATION; Start 07/17/18 at 19:30 Aspirin (Halfprin) 81 mg DAILY PO Last administered on 07/20/18 08:25; Admin Dose 81 MG; Start 07/18/18 at 09:00 Metoprolol Succinate (Toprol Xl) 50 mg BID PO Last administered on 07/20/18 08:26; Admin Dose 50 MG; Start 07/18/18 at 21:00 Ceftriaxone Sodium 50 ml @ 100 mls/hr Q24H IVPB Last administered on 07/20/18 08:25; Admin Dose 100 MLS/HR; Start 07/19/18 at 10:00 Azithromycin (Zithromax) 250 mg DAILY PO Last administered on 07/20/18 08:26; Admin Dose 250 MG; Start 07/19/18 at 10:00 Albuterol/ Ipratropium (Duoneb) 3 ml Q6H RESP THERAPY PRN HHN SHORTNESS OF BREATH Last administered on 07/19/18at 23:06; Admin Dose 3 ML; Start 07/19/18 at 23:00 OTIS BHATIA Jul 20, 2018 08:39
--- NOTE | 2018-07-20 08:55 | PDOCDIS ---
Discharge Instructions CONDITION [id number] Patient Condition: [id number] Good HOME CARE INSTRUCTIONS: [id number] Diet Instructions: [id number] Low Fat /Cholesterol ACTIVITY: [id number] Activity Restrictions: [id number] Slowly Increase Activity Rest between Activity [id number] Bathing Restrictions: [id number] Shower FOLLOW UP/APPOINTMENTS Follow-up Plan Dr Mac , COURTNEY Rea MD Jul 20, 2018 08:55
--- NOTE | 2018-07-20 09:41 | DS ---
DATE OF ADMISSION: 07/18/2018 DATE OF DISCHARGE: HISTORY OF PRESENT ILLNESS AND HOSPITAL COURSE: This 62-year-old female was admitted from my office after she presented with a week of increasing shortness of breath and chest pressure on exertion. Jerri chakraborty denied cough, fever, chills. She was sent to the emergency room and was admitted through the emerg ency room. She was found to have a moderate sized right pleural effusion. She underwent a thoracent esis. It was a transudative fluid. We are awaiting cytology results. The patient had negative trop onins. Her EKG on admission was slightly different than her previous EKG which showed some T-wave fl attening. The patient was seen in consultation by Dr. Lamin Herman, a local wastewater technician, and Dr. Fortunato Stewart, a improvement specialist. While in the hospital, the patient did have an episode of a trial flutter with 2:1 block and a rapid ventricular rate of up to 140 to 150. The patient did miss one dose of her metoprolol. Dr. Herman increased the metoprolol to twice a day and she spontaneous ly converted to sinus rhythm. After thoracentesis she felt well. She was up walking around without shortness of breath or chest pressure. She does have a history of bilateral breast cancer and we are concerned that this could be related to that breast cancer. We are awaiting the cytology reports fr om pathology. The patient will be discharged home today to the care of her and family. She was in good condition at the time of discharge. While in the hospital, she was treated with antibiot ics, ceftriaxone and azithromycin. She will finish a course of azithromycin at home. She was also p laced on metoprolol succinate of 50 mg twice a day, simvastatin 20 mg a day and an 81 mg aspirin. Jerri chakraborty will see me in my office next week. She will then follow up with her regular wastewater technician, Dr. Nathaniel nguyen. There are plans to probably put an event monitor on her for several weeks to see if she has ep isodes of atrial fibrillation or atrial flutter. The patient was ambulatory at the time of discharge . DISCHARGE DIAGNOSES: 1. Chest pressure and shortness of breath. 2. Right pleural effusion. 3. History of mitral stenosis. 4. Episode of atrial flutter. 5. History of bilateral breast cancer. 6. History of asthma. Dictated By: COURTNEY NASSAR MD ND/NTS Conf#: [id number] DID#: [id number] CC: FORTUNATO STEWART MD;*EndCC*
== END 2018-07-20 10:00 | disposition home or self-care (01) | DRG 186 ==
LOC: E/R 10:15 → 6WM 12:18 → OBSVTOIN 07-18 14:31
PROVIDERS: ADMIT Internal Medicine; ATTEND Internal Medicine
PROC: 0W993ZX Drainage of Right Pleural Cavity, Percutaneous Approach, Diagnostic (ICD-10-PCS; principal; 2018-07-18)
DX: J90 Pleural effusion, not elsewhere classified (principal); J18.9 Pneumonia, unspecified organism; I48.92 Unspecified atrial flutter; I27.20 Pulmonary hypertension, unspecified; I44.1 Atrioventricular block, second degree; I48.2 Chronic atrial fibrillation; I05.0 Rheumatic mitral stenosis; I10 Essential (primary) hypertension; E78.5 Hyperlipidemia, unspecified; J45.909 Unspecified asthma, uncomplicated; G47.30 Sleep apnea, unspecified; R07.9 Chest pain, unspecified; Z85.3 Personal history of malignant neoplasm of breast; Z79.82 Long term (current) use of aspirin; Z90.13 Acquired absence of bilateral breasts and nipples
CPT/HCPCS: 32555; 36415; 71045; 71046; 71275; 80053; 81003; 82945; 83036; 83615; 84157; 84443; 84484; 85025; 85610; 85730; 87070; 87102; 87116; 88104; 88305; 89051; 93005; 93306; 94664; G0378; J0456; J0696; J1940; J3475; Q9967

== ENCOUNTER → 2018-08-03 | Outpatient (CLI) | payer MEDICARE, OTHER ==
[~2018-08-03] MED LIST changes: +ASPI-817 PO; -ATOR20TA38 PO; +METO-319 PO; +SIMV20TA PO
== END | disposition home or self-care (01) ==
LOC: U/S 08:48
PROVIDERS: ATTEND Internal Medicine
DX: R94.5 Abnormal results of liver function studies (principal)
CPT/HCPCS: 76700